=== PATIENT | male | born 1950 | race Caucasian/White ===

== ENCOUNTER → 2016-10-29 | Outpatient (CLI) | payer BC, OTHER | LOC: FIMAGING 13:57 | PROVIDERS: ATTEND Internal Medicine Critical Care Medicine | DX: J98.4 Other disorders of lung (principal); I70.0 Atherosclerosis of aorta; I25.10 Atherosclerotic heart disease of native coronary artery without angina pectoris ==

== ENCOUNTER → 2017-02-25 | Outpatient (CLI) | payer OTHER | LOC: FIMAGING 15:27 | PROVIDERS: ATTEND Family Medicine | DX: K59.00 Constipation, unspecified (principal); R10.84 Generalized abdominal pain ==

== ENCOUNTER → 2017-03-07 | Outpatient (CLI) | payer OTHER | LOC: FIMAGING 09:44 | DX: M48.06 Spinal stenosis, lumbar region (principal); I72.3 Aneurysm of iliac artery; I10 Essential (primary) hypertension; F33.1 Major depressive disorder, recurrent, moderate; M47.817 Spondylosis without myelopathy or radiculopathy, lumbosacral region; M51.37 Other intervertebral disc degeneration, lumbosacral region; M54.17 Radiculopathy, lumbosacral region ==

== ENCOUNTER 2018-09-11 09:31 | Emergency (ER) | payer OTHER ==
--- NOTE | 2018-09-11 09:57 | EDPHY ---
H & P Stated Complaint: non-prod cough x3wks, finished ABX x2,pred, still SOB. Time Seen by Provider: 09/11/18 09:41 HPI/ROS: CHIEF COMPLAINT: "I just can't catch my breath" HISTORY OF PRESENT ILLNESS: 67-year-old male with up-to-date influenza vaccination, up-to-date pneumonia vaccination, complaining of productive cough, dyspnea for 3 weeks. The patient saw his primary care provider 3 weeks ago for complaints of productive cough, URI symptoms, was given azithromycin Z-Sacha. He remains symptomatic, return 10 days ago was given a course of Levaquin which he has completed. He is complaining of continued dyspnea and nonproductive cough. Denies: Chest pain, syncope, near syncope, headache, back pain PRIMARY CARE PROVIDER: Dr. Jesus Galan REVIEW OF SYSTEMS: 10 systems reviewed and negative with the exception of the elements mentioned in the history of present illness PAST MEDICAL & SURGICAL HISTORY: PVD, CABG, BPH. Daily Plavix. SOCIAL HISTORY: Nonsmoker. PHYSICAL EXAM (Prior to examination, patient consented to physical exam, hands were washed and my usual and customary physical exam procedures followed) 1) GENERAL: Well-developed, well-nourished, alert and oriented. Appears to be in no acute distress. Speaking full sentences 2) HEAD: Normocephalic, atraumatic 3) HEENT: Pupils equal, round, reactive to light bilaterally. Sclera anicteric. Nasopharynx, oropharynx, clear, no lesions. Moist Mucous membranes. No tonsillar enlargement or exudate Ears bilaterally with normal tympanic membranes. 4) NECK: Full range of motion, no meningeal signs. 5) LUNGS: Clear auscultation bilaterally, no wheezes, no rhonchi, no retractions. 6) HEART: Regular rate and rhythm, no murmur, no heave, no gallop. 7) ABDOMEN: No guarding, no rebound, no focal tenderness, negative McBurney's, negative Daniels's, negative Rovsing's, negative peritoneal sign, negative Homans no palpable cord 8) MUSCULOSKELETAL: Moving all extremities, no focal areas of tenderness, no obvious trauma. No peripheral edema or discoloration. 9) BACK: No CVA tenderness, no midline vertebral tenderness, no fluctuance, no step-off, no obvious trauma, no visual or palpable abnormality. 10) SKIN: No rash, no petechiae. 11) Psychiatric: Patient is oriented X 3, there is no agitation. DIFFERENTIAL DIAGNOSIS: In no particular order including but not limited to SC , PE, pulmonary infectious etiology - Personal History Current Tetanus/Diphtheria Vaccine: Yes Tetanus Vaccine Date: 2012 - Medical/Surgical History Hx Asthma: No Hx Chronic Respiratory Disease: No Hx Diabetes: No Hx Cardiac Disease: Yes Hx Renal Disease: No Hx Cirrhosis: No Hx Alcoholism: No Hx HIV/AIDS: No Hx Splenectomy or Spleen Trauma: No Other PMH: cabag, lumbar fusion, c1-c7 fusion, djd, chronic pain, sigmoid resection, pertonitis, knee surgery - Social History Smoking Status: Former smoker Constitutional: Initial Vital Signs Temperature (C) 36.6 C 09/11/18 09:37 Heart Rate 90 09/11/18 09:37 Respiratory Rate 16 09/11/18 09:37 Blood Pressure 156/94 H 09/11/18 09:37 O2 Sat (%) 93 09/11/18 09:37 O2 Delivery Mode Room Air Allergies/Adverse Reactions: No Known Allergies Allergy (Verified 09/11/18 09:37) Home Medications: Medication Instructions Recorded Avanafil [Stendra] 0.25 - 1 tab PO DAILY PRN 12/24/14 Cholecalciferol Vit D3 [Vitamin D3 2,000 units PO DAILY 12/24/14 (*)] Finasteride [Proscar 5 MG (*)] 5 mg PO DAILY 12/24/14 Hydrocodone/Acetaminophen [Herscher 1 each PO Q4 PRN 12/24/14 5/325 (*)] Lisinopril [Zestril 5 mg (*)] 5 mg PO DAILY 12/24/14 Multivitamins [Multivitamin (*)] 1 each PO DAILY 12/24/14 Naproxen [Naprosyn] 500 mg PO BID 12/24/14 Nitroglycerin [Nitrostat 0.4 mg 0.4 mg SL PRN PRN 12/24/14 (*)] Randolph-3 Fatty Acids [Fish Oil 1000 1,000 mg PO DAILY 12/24/14 mg (*)] Tamsulosin HCl [Flomax 0.4 MG (*)] 0.4 mg PO DAILY 12/24/14 Tizanidine HCl [Zanaflex] 4 mg PO Q8H PRN 12/24/14 buPROPion XL [Wellbutrin 150mg XL] 300 mg PO DAILY@08 12/24/14 oxyCODONE CR [Oxycontin] 10 mg PO DAILY PRN 12/24/14 Rosuvastatin Calcium [Crestor 40mg 40 mg PO DAILY #30 tab 12/27/14 (*)] Benzonatate [Tessalon Pearles (RX)] 200 mg PO TID PRN #15 cap 09/11/18 Medical Decision Making - Diagnostics Imaging Results: Imaging Impressions Chest X-Ray 09/11/18 09:52 Impression: Negative for acute cardiopulmonary abnormality. Prior CABG and cervical spine surgery. Chest/Thorax CTA 09/11/18 10:48 Impression: 1. No pulmonary embolism. 2. Mild emphysema with septal thickening in the lung parenchyma, nonspecific. Findings and recommendations discussed with Beau Durbin PA-C at 11:50 a.m. on September 11, 2018. Final report concurs with initial preliminary interpretation. ED Course/Re-evaluation: 9:56 a.m.: I reviewed the patient's old medical records, he has significant cardiac history including CABG, peripheral vascular disease. His lungs are clear knee speaking full sentences. We discussed possible pulmonary infectious etiology however also recommended cardiac evaluation including laboratory studies, EKG. He is agreeable with this. Care of patient under supervision of secondary supervising physician Dr Bowman with whom I discussed case. 10:30 a.m.: Patient's D-dimer is non negative. Moderate pretest suspicion for pulmonary embolus. Recommended proceeding with CT angiography of the chest once his creatinine results are returned.. Indications risks benefits discussed with patient and he consents. Creatinine is pending at this time 10:41 a.m.: Creatinine 1.1. He does have an elevated BUN creatinine ratio of 21. He is receiving IV hydration. 1:04 p.m.: Patient was re-evaluated by myself. Given DuoNeb treatment. Discussed his CT angiography which is negative for pulmonary embolus or infiltrate. He is able to hold a conversation without any signs of respiratory distress is maintaining saturations of 92% on room air while talking and while ambulating in the emergency department. Doubt PE. Doubt cardiac etiology in presence of negative troponin and symptomatic for several days. Discussed case with Dr. Bowman in the ER. We do not identify definitive indication for hospitalization. Patient feels comfortable being discharged. He already has albuterol meter dose inhaler. Also prescribed Tessalon. Recommend close follow -up with primary care provider on Friday (today is Friday). Patient feels comfortable being discharged. I do not think that further antibiotics indicated as he has already had 2 rounds of antibiotics. All questions and concerns addressed by myself. Patient given my usual and customary discharge precautions and instructions regarding their clinical impression. - Data Points Laboratory Results: Laboratory Results 09/11/18 10:00 09/11/18 10:00 09/11/18 09/11/18 09/11/18 10:06 10:00 10:00 WBC RBC Hgb Hct MCV MCH MCHC RDW Plt Count MPV Neut % (Auto) Lymph % (Auto) Ellis % (Auto) Eos % (Auto) Baso % (Auto) Nucleat RBC Rel Count Absolute Neuts (auto) Absolute Lymphs (auto) Absolute Monos (auto) Absolute Eos (auto) Absolute Basos (auto) Absolute Nucleated RBC Immature Gran % Immature Gran # D-Dimer 0.63 ug/mLFEU H ug/mLFEU (0.00-0.50) Sodium 139 mEq/L mEq/L (135-145) Potassium 4.5 mEq/L mEq/L (3.5-5.2) Chloride 106 mEq/L mEq/L (97-110) Carbon Dioxide 21 mEq/l L mEq/l (22-31) Anion Gap 12 mEq/L mEq/L (6-14) BUN 24 mg/dL H mg/dL (7-23) Creatinine 1.1 mg/dL mg/dL (0.7-1.3) Estimated GFR > 60 Glucose 110 mg/dL H mg/dL (70-100) Calcium 9.4 mg/dL mg/dL (8.5-10.4) POC Troponin I 0.00 ng/mL ng/mL (0.00-0.08) 09/11/18 10:00 WBC 11.75 10^3/uL H 10^3/uL (3.80-9.50) RBC 5.27 10^6/uL 10^6/uL (4.40-6.38) Hgb 15.7 g/dL g/dL (13.7-17.5) Hct 46.9 % % (40.0-51.0) MCV 89.0 fL fL (81.5-99.8) MCH 29.8 pg pg (27.9-34.1) MCHC 33.5 g/dL g/dL (32.4-36.7) RDW 14.9 % % (11.5-15.2) Plt Count 247 10^3/uL 10^3/uL (150-400) MPV 9.1 fL fL (8.7-11.7) Neut % (Auto) 85.6 % H % (39.3-74.2) Lymph % (Auto) 7.6 % L % (15.0-45.0) Ellis % (Auto) 5.5 % % (4.5-13.0) Eos % (Auto) 0.2 % L % (0.6-7.6) Baso % (Auto) 0.4 % % (0.3-1.7) Nucleat RBC Rel Count 0.0 % % (0.0-0.2) Absolute Neuts (auto) 10.06 10^3/uL H 10^3/uL (1.70-6.50) Absolute Lymphs (auto) 0.89 10^3/uL L 10^3/uL (1.00-3.00) Absolute Monos (auto) 0.65 10^3/uL 10^3/uL (0.30-0.80) Absolute Eos (auto) 0.02 10^3/uL L 10^3/uL (0.03-0.40) Absolute Basos (auto) 0.05 10^3/uL 10^3/uL (0.02-0.10) Absolute Nucleated RBC 0.00 10^3/uL 10^3/uL (0-0.01) Immature Gran % 0.7 % % (0.0-1.1) Immature Gran # 0.08 10^3/uL 10^3/uL (0.00-0.10) D-Dimer Sodium Potassium Chloride Carbon Dioxide Anion Gap BUN Creatinine Estimated GFR Glucose Calcium POC Troponin I Medications Given: Discontinued Medications Albuterol/Ipratropium (Duoneb) 3 ml IH EDNOW ONE Stop: 09/11/18 12:07 Last Admin: 09/11/18 12:11 Dose: 3 ml Sodium Chloride (Ns) 1,000 mls @ 0 mls/hr IV ONCE ONE PRN Reason: Wide Open Stop: 09/11/18 10:41 Last Admin: 09/11/18 10:53 Dose: Not Given Sodium Chloride (Ns) 500 mls @ 0 mls/hr IV ONCE ONE PRN Reason: Wide Open Stop: 09/11/18 10:49 Last Admin: 09/11/18 10:51 Dose: 500 mls Point of Care Test Results: Chemistry 09/11/18 10:06 POC Troponin I 0.00 ng/mL ng/mL (0.00-0.08) Departure - Departure Disposition: Home, Routine, Self-Care Clinical Impression: Cough Condition: Good Instructions: Chronic Cough (ED) Additional Instructions: Seek medical attention if you develop shortness of breath, if you develop chest pain, if you feel faint,, or any other symptoms that concern you. Referrals: Jesus Galan MD [Primary Care Provider] - 09/14/18 Prescriptions: Benzonatate [Tessalon Pearles (RX)] 200 mg PO TID PRN #15 cap PRN Reason: Cough, Moderate
[2018-09-11 10:12] LABS: PLATELET COUNT 247 10^3/uL (150-400)
[2018-09-11] MEDS ORDERED: NS 1,000 ML IV ONE (10:40)
[2018-09-11] MEDS ORDERED: NS 500 ML IV ONE (10:48)
[2018-09-11] MEDS ORDERED: IOPAMIDOL (ISOVUE-370) 150 ML BTL IV ONE (10:55)
[2018-09-11] MEDS ORDERED: IPRATROPIUM/ALBUTEROL 3 ML DEYVIAL IH ONE (12:06)
[2018-09-11 12:42] VITALS: BP 153/90
--- NOTE | 2018-09-14 07:30 | CPEKG ---
Test Reason : OPEN Blood Pressure : / mmHG Vent. Rate : 085 BPM Atrial Rate : 087 BPM P-R Int : 144 ms QRS Dur : 100 ms QT Int : 359 ms P-R-T Axes : 074 -14 053 degrees QTc Int : 427 ms Sinus rhythm Nonspecific repol abnormality, anterior leads Confirmed by Ming Bowman ([id number]) on 09/14/2018 7:29:40 AM Referred By: Ming Bowman Confirmed By:Ming Bowman
== END 2018-09-11 13:13 | disposition home or self-care (01) ==
DX: R05 Cough (principal); R06.00 Dyspnea, unspecified; Z87.891 Personal history of nicotine dependence; Z95.1 Presence of aortocoronary bypass graft
CPT/HCPCS: 71046; 71275; 93005; 96360; 99285; Q9967; 84484-ER